=== PATIENT | male | born 1940 | race Asian ===

== ENCOUNTER 2022-05-08 18:24 | Emergency (ER) | payer MEDICARE, BC ==
[~2022-05-08] VITALS: Ht 172.7 cm; Wt 82.0 kg
[2022-05-08 22:24] LABS: BASOPHILS % 0.8 % (0.0-2.0); EOSINOPHILS % 3.7 % (0.0-5.0); HEMATOCRIT. 42.2 % (42.0-52.0); LYMPHOCYTES % 31.6 % (20.0-50.0); MEAN CORPUSCULAR HEMOGLOBIN 31.6 pg (28.0-32.0); MEAN PLATELET VOLUME 7.8 fl (7.4-10.4); MONOCYTES % 9.2 % (2.0-8.0); NEUTROPHILS % 54.7 % (40.0-76.0); PLATELET 253 x1000/uL (130-400); RED BLOOD CELL COUNT 4.44 mill/uL (4.7-6.1); RED CELL DISTRIBUTION WIDTH 13.9 % (11.6-14.6)
[2022-05-08 22:25] LABS: CLARITY URINE CLEAR (CLEAR); COLOR URINE YELLOW (YELLOW); KETONES URINE NEGATIVE (NEGATIVE); LEUKOCYTE ESTERASE URINE NEGATIVE (NEGATIVE); NITRITE URINE NEGATIVE (NEGATIVE); OCCULT BLOOD URINE NEGATIVE (NEGATIVE); PH URINE 5.5 (4.5-8.0); PROTEIN URINE NEGATIVE (NEGATIVE); SPECIFIC GRAVITY URINE 1.007 (1.005-1.030); UROBILINOGEN URINE 0.2 E.U./dL (0.2-1.0)
[2022-05-08 22:26] LABS: CHLORIDE 108 mEq/L (98-107)
[2022-05-08 22:32] LABS: ETHANOL BLOOD 91 mg/dL
[2022-05-08] MEDS ORDERED: ASPIRIN 325MG EC TABLET PO NR (23:00)
[2022-05-08 23:50] VITALS: BP 138/74
== END 2022-05-09 00:07 | disposition left against medical advice (07) ==
LOC: ER 18:51 → CANBEDREQ 05-10 21:26
DX: R55 Syncope and collapse (principal); I10 Essential (primary) hypertension; Z95.0 Presence of cardiac pacemaker
CPT/HCPCS: 36415; 71045; 80053; 80320; 81003; 83735; 83880; 84484; 85025; 93005; 99285; G0480